=== PATIENT | female | born 1980 | race Caucasian/White ===

== ENCOUNTER 2016-12-07 11:24 | Emergency (ER) | payer OTHER ==
[~2016-12-07] VITALS: Ht 172.7 cm; Wt 99.8 kg
[~2016-12-07 11:24] MED LIST: LEVO1TAB10 PO
[2016-12-07 11:35] VITALS: BP 154/96; PULSE 95; RESP 17; TEMP 98; O2SAT 95
[2016-12-07] MEDS ORDERED: IBUPROFEN 800 MG TABLET PO ONE (12:00)
[2016-12-07] MEDS ORDERED: HYDROcodone/ACETAMIN 5-325 MG TAB (NORCO/ VICODIN) PO ONE (13:15)
[2016-12-07] MEDS ORDERED: ONDANSETRON 4 MG ODT TAB PO ONE (13:15)
[2016-12-07 13:50] VITALS: BP 128/74; PULSE 77; RESP 15; TEMP 98.4; O2SAT 99
== END 2016-12-07 13:50 | disposition home or self-care (01) ==
LOC: SED 11:24
DX: S16.1XXA Strain of muscle, fascia and tendon at neck level, initial encounter (principal); R51 Headache; I10 Essential (primary) hypertension; V49.9XXA Car occupant (driver) (passenger) injured in unspecified traffic accident, initial encounter; Y93.89 Activity, other specified; Y99.8 Other external cause status; Y92.89 Other specified places as the place of occurrence of the external cause
CPT/HCPCS: 70450; 72125; 81025; 99284; Q0162

== ENCOUNTER 2019-05-19 19:26 | Inpatient (IN) | payer OTHER ==
[~2019-05-19] VITALS: Ht 172.7 cm; Wt 88.9 kg
[~2019-05-19 19:26] MED LIST changes: +CEPH-568 PO; +IBUP-1969 PO; +IBUP-1970 PO; +NOR10 PO; +OXYC-130 PO
[2019-05-19] MEDS ORDERED: NACL 0.9% 1,000 ML IV ONE (19:44)
[2019-05-19 19:49] VITALS: BP_SYST 146
--- NOTE | 2019-05-19 19:52 | NUR ---
Patient to ER bed 07 to gown for evaluation. Side rails up.
--- NOTE | 2019-05-19 20:00 | NUR ---
Pt C/O fever, abdominal pain, nausea, and generalized weakness x 2 days. Pt states she took Tylenol prior to arrival and is afebrile in the ED. Has hx of ulcers. Denies any chest pain, shortness of breath or any other symptoms at this time. Will continue to monitor.
[2019-05-19 20:07] LABS: BILIRUBIN,URINE NEGATIVE (NEGATIVE); BLOOD, URINE NEGATIVE (NEGATIVE); CLARITY/URINE CLEAR (CLEAR); COLOR,URINE YELLOW (YELLOW); GLUCOSE,URINE NEGATIVE (NEGATIVE); KETONES,URINE TRACE (NEGATIVE); LEUKOCYTE ESTERASE ,URINE NEGATIVE (NEGATIVE); NITRITE, URINE NEGATIVE (NEGATIVE); PH,URINE 7.5 (5.0-8.0); PROTEIN URINE TRACE (NEGATIVE); UROBILINOGEN,URINE 0.2 (0.2-1.0)
--- NOTE | 2019-05-19 20:08 | NUR ---
ER Dr. Ambrosio at bedside examining patient.
[2019-05-19 20:15] LABS: BACTERIA,URINE FEW /HPF (None Seen); RBC,URINE 0-3 /HPF (0-3); WBC,URINE 0-3 /HPF (0-3)
[2019-05-19] MEDS ORDERED: MORPHINE 4 MG/ML INJ. SYRINGE IVP ONE ×2 (20:15→21:45)
[2019-05-19] MEDS ORDERED: NACL 0.9% 2,000 ML IV ONE (20:15)
[2019-05-19] MEDS ORDERED: ONDANSETRON HCL 4 MG/2 ML VIAL IVP ONE (20:15)
[2019-05-19 20:32] LABS: BASOPHILS # (AUTO) 0.1 K/uL (0.0-0.2); BASOPHILS % (AUTO) 0.3 % (0.0-2.0); EOSINOPHILS # (AUTO) 0.3 K/uL (0.0-0.4); HEMATOCRIT 37.1 % (36-48); HEMOGLOBIN 12.6 g/dL (12.0-16.0); LYMPHOCYTES # (AUTO) 0.8 K/uL (1.0-5.5); LYMPHOCYTES % (AUTO) 4.8 % (20.5-51.5); MEAN CORPUSCULAR HEMOGLOBIN 31 pg (27-31); MEAN CORPUSCULAR HGB CONC 34 % (32-36); MEAN CORPUSCULAR VOLUME 91 fL (79.0-98.0); MONOCYTES # (AUTO) 0.8 K/uL (0.0-1.0); MONOCYTES % (AUTO) 4.9 % (1.7-9.3); PLATELET COUNT (AUTO) 430 K/uL (130-430); RED CELL DISTRIBUTION WIDTH 12.9 % (9.0-15.0)
[2019-05-19] MEDS ORDERED: cefTRIAXone 1 GM IVPB PREMIX 50 ML IV ONE (21:00)
--- NOTE | 2019-05-19 21:02 | NUR ---
Patient transported to radiology via wheelchair, accompanied by rad staff.
--- NOTE | 2019-05-19 21:07 | NUR ---
Pt returned in stable condition.
[2019-05-19 21:11] LABS: PROTHROMBIN TIME 10.2 SECS (9.5-12.5)
[2019-05-19 21:12] LABS: CALCIUM 9.7 mg/dL (8.4-11.0); CREATININE 0.85 mg/dL (0.55-1.30); POTASSIUM 3.6 mmol/L (3.5-5.1)
[2019-05-19 21:16] LABS: ALBUMIN 3.4 g/dL (3.4-4.8); TOTAL BILIRUBIN 0.5 mg/dL (0.0-1.0)
[2019-05-19] MEDS ORDERED: ESTR1.25 PO (21:44)
[2019-05-19] MEDS ORDERED: ESOM5SUS PO (21:44)
--- NOTE | 2019-05-19 21:44 | NUR ---
Medication reconciliation completed with information provided by patient.
--- NOTE | 2019-05-19 22:58 | NUR ---
Patient will be admitted to care of Dr. Rossi. Admitted to med surg unit. Will go to room 135. Belongings list completed. Summary report printed. Report will be given at bedside.
[2019-05-19] MEDS ORDERED: MORPHINE 2 MG/ML INJ. SYRINGE IVP SCH (23:15)
--- NOTE | 2019-05-19 23:30 | NUR ---
ADMISSION NOTE Received patient from ER via gamal, received report from CLAUDIA PEREZ. Patient admitted with diagnosis of PNA. Patient oriented to hospital routine, call light, toileting and safety-patient verbalized understanding.
[2019-05-19 23:34] VITALS: BP_SYST 160
[2019-05-19] MEDS ORDERED: MORPHINE 2 MG/ML INJ. SYRINGE IVP PRN (23:45)
[2019-05-20] MEDS: NACL 0.9% 1,000 ML IV SCH ×2 (00:06→15:04)
--- NOTE | 2019-05-20 00:13 | NUR ---
PAIN/MORPHINE PT REPORTING SEVERE PAIN. PT GIVEN MORPHINE 2 MG IVP. MEDICATION ACTIONS AND POTENTIAL SIDE EFFECTS EXPLAINED, PT VERBALIZED UNDERSTANDING. SAFETY MAINTAINED. WILL MONITOR.
--- NOTE | 2019-05-20 00:19 | NUR ---
Pagelili Azevedo s/w Leonardo
[2019-05-20] MEDS ORDERED: LEVOFLOXACIN 500 MG/D5W 100 ML IV ONE (00:22)
--- NOTE | 2019-05-20 00:30 | NUR ---
SPOKE TO DR. MANLEY REGARDING PT'S REPORT OF PERSISTENT ABDOMINAL PAIN DESPITE MORPHINE ADMINISTRATION. DR. MANLEY ORDERED DILAUDID 2 MG Q 4 HR FOR SEVERE PAIN. DR. MANLEY ALSO ORDERED STAT CT OF ABDOMEN/PELVIS WITH CONTRAST. WILL CARRY OUT.
[2019-05-20] MEDS: LEVOFLOXACIN 500 MG/D5W 100 ML IV SCH (00:56)
[2019-05-20] MEDS ORDERED: DIATR MEGLU/DIATRIZ SOD 30 ML SOLUTION PO ONE (01:22)
[2019-05-20 01:43] VITALS: BP_SYST 154
--- NOTE | 2019-05-20 01:49 | NUR ---
IV RE-INSERTION: Complaining of pain to IV site. Restarted on LEFT AC. Successful after MULTIPLE attempts. Resumed current IVF of NS and regulated @ 75 per hour. Will observe for any signs of infiltration.
--- NOTE | 2019-05-20 03:10 | NUR ---
RADIOLOGY PT OFF THE FLOOR VIA WHEELCHAIR WITH RADIOLOGY FOR CT OF ABDOMEN/PELVIS WITH CONTRAST.
[2019-05-20] MEDS ORDERED: IOHEXOL 100 ML IV ONE (03:26)
--- NOTE | 2019-05-20 03:28 | NUR ---
RETURN TO UNIT FROM RADIOLOGY FOR CT SCAN. VSS.
[2019-05-20] MEDS: HYDROmorphone 2 MG/ML VIAL IVP PRN ×4 (03:32→19:41)
--- NOTE | 2019-05-20 03:32 | NUR ---
PAIN/DILAUDID PT REPORTING SEVERE ABDOMINAL PAIN. DILAUDID 2 MG IVP ADMINISTERED. MEDICATION ACTION AND POTENTIAL SIDE EFFECTS EXPLAINED. PT VERBALIZED UNDERSTANDING. SAFETY PRECAUTIONS OBSERVED. WILL MONITOR.
--- NOTE | 2019-05-20 06:25 | NUR ---
CLOSING NOTE PT RESTING IN BED, NO S/S OF ACUTE DISTRESS, BREATHING IS EVEN AND UNLABORED TO ROOM AIR. PT APPEARS TO BE COMFORTABLE AT THIS TIME. IVF INFUSING AT ORDERED RATE. ALL NEEDS MET DURING SHIFT. WILL CONTINUE TO MONITOR UNTIL PT CARE IS ENDORSED TO DAY SHIFT RN.
--- NOTE | 2019-05-20 08:00 | NUR ---
initial notes rec patient awake alert with hob levated. ivf infusing well on the l ac. no infiltration noted. bed to the lowest position and side rails up and locked. seen by dr melara at bedside. no sob noted. call light within reached.
--- NOTE | 2019-05-20 08:35 | NUR ---
GI consult called: for Dr. Estrada (Dr. Chris cone trucker), regarding abdominal pain, ordered by Dr. Azevedo, spoke with Sahra.
[2019-05-20 09:00] LABS: BASOPHILS % (AUTO) 0.4 % (0.0-2.0); EOSINOPHILS # (AUTO) 0.1 K/uL (0.0-0.4); EOSINOPHILS % (AUTO) 0.5 % (0.0-4.0); HEMATOCRIT 35.2 % (36-48); HEMOGLOBIN 11.6 g/dL (12.0-16.0); LYMPHOCYTES # (AUTO) 0.8 K/uL (1.0-5.5); MEAN CORPUSCULAR HEMOGLOBIN 30 pg (27-31); MEAN CORPUSCULAR HGB CONC 33 % (32-36); MEAN CORPUSCULAR VOLUME 91 fL (79.0-98.0); MONOCYTES # (AUTO) 0.7 K/uL (0.0-1.0); MONOCYTES % (AUTO) 5.8 % (1.7-9.3); NEUTROPHILS % (AUTO) 87.3 % (40.0-70.0); PLATELET COUNT (AUTO) 406 K/uL (130-430); RED BLOOD CELL COUNT(AUTO) 3.87 MIL/uL (4.2-6.2); RED CELL DISTRIBUTION WIDTH 13.2 % (9.0-15.0); WHITE BLOOD COUNT (AUTO) 12.6 K/uL (4.8-10.8)
[2019-05-20 09:14] LABS: CALCIUM 9.1 mg/dL (8.4-11.0); CREATININE 0.83 mg/dL (0.55-1.30); POTASSIUM 4.1 mmol/L (3.5-5.1)
[2019-05-20 09:25] LABS: ALBUMIN 2.7 g/dL (3.4-4.8); TOTAL BILIRUBIN 0.3 mg/dL (0.0-1.0)
[2019-05-20] MEDS ORDERED: amLODIPine BESYLATE 10 MG TABLET PO ONE (11:45)
[2019-05-20] MEDS ORDERED: ESTROGENS,CONJUGATED 0.625 MG TABLET PO SCH (11:45)
[2019-05-20] MEDS: ONDANSETRON HCL 4 MG/2 ML VIAL IVP PRN ×2 (13:18→19:42)
[2019-05-20] MEDS ORDERED: ESTRADIOL 1 MG PO ONE (13:45)
[2019-05-20 14:32] VITALS: BP_SYST 142
[2019-05-20] MEDS: PANTOPRAZOLE SODIUM 40 MG TAB PO SCH ×2 (14:58→20:17)
[2019-05-20] MEDS: ESTRADIOL 1 MG PO SCH (15:00)
[2019-05-20] MEDS: ACETAMINOPHEN 325 MG TABLET PO PRN (15:02)
--- NOTE | 2019-05-20 16:00 | NUR ---
rounds seen y dr lomas and with orders.
[2019-05-20 16:56] VITALS: BP_SYST 121
--- NOTE | 2019-05-20 18:50 | NUR ---
closing notes sleeps at intervals. no sob noted. bed to the lowest position and side rails up and locked. call light within reached.
--- NOTE | 2019-05-20 19:30 | NUR ---
OPENING NOTE RECEIVED CARE OF PT. PT REPORTING SEVERE PAIN AND NAUSEA. PT IS AAOX4, WITH AND SON AT BEDSIDE. BREATHING IS UNLABORED TO O2 VIA NC AT 2L, O2 SATURATION IS AT 97%. IVF ARE INFUSING WITH NO SIGN OF INFILTRATION AT IV SITE. SAFETY PRECAUTIONS ARE IN PLACE. BED IS LOCKED IN LOWEST POSITION. CALL LIGHT IS WITH PT. SIDE RAILS UP X2. WILL MONITOR.
--- NOTE | 2019-05-20 19:42 | NUR ---
DILAUDID/ZOFRAN PT GIVEN DILAUDID 2 MG IVP FOR PAIN AND ZOFRAN 4 MG IVP FOR NAUSEA. MEDICATIONS AND POTENTIAL SIDE EFFECTS EXPLAINED TO PT. PT VERBALIZED UNDERSTANDING. SAFETY PRECAUTIONS IN PLACE. WILL MONITOR.
[2019-05-20 20:00] VITALS: BP_SYST 124
--- NOTE | 2019-05-20 20:43 | NUR ---
SPOKE TO DR. DAYANNA AALN ORDERED STAT ABG FOR PT ON ROOM AIR. DR. ALAN ALSO DISCONTINUED DILAUDID FOR PAIN. MD INFORMED THAT PT REPORTS SEVERE ABDOMINAL PAIN. MD STATED THAT THE PAIN MEDICATION IS LIKELY CAUSING THE PT TO BREATH IRREGULARLY.
[2019-05-20] MEDS ORDERED: IPRATROPIUM BROM 0.5 MG/2.5 ML VIAL.NEB (ATROVENT) INH PRN (20:45)
[2019-05-20] MEDS ORDERED: ALBUTEROL SULFATE 0.083% 2.5 MG/3 ML VIAL.NEB INH PRN (20:45)
--- NOTE | 2019-05-20 20:58 | NUR ---
ABG DRAWN RESPIRATORY AT BEDSIDE TO DRAW STAT ABG.
[2019-05-20] MEDS ORDERED: ACETAMINOPHEN 325 MG TABLET PO PRN (21:00)
[2019-05-20] MEDS ORDERED: ALBUTEROL SULFATE 0.083% 2.5 MG/3 ML VIAL.NEB INH ONE (21:09)
[2019-05-20] MEDS ORDERED: IPRATROPIUM BROM 0.5 MG/2.5 ML VIAL.NEB (ATROVENT) INH ONE (21:09)
[2019-05-20] MEDS: IPRATROPIUM BROM 0.5 MG/2.5 ML VIAL.NEB (ATROVENT) INH SCH (21:17)
[2019-05-20] MEDS: ALBUTEROL SULFATE 0.083% 2.5 MG/3 ML VIAL.NEB INH SCH (21:17)
--- NOTE | 2019-05-20 21:22 | NUR ---
PAGED I PAGED DR. ALAN @ 2121 I SPOKE WITH [employer] OFFICER DR. ALAN CALLED BACK @ 2142
[2019-05-20 21:42] VITALS: BP_SYST 121
--- NOTE | 2019-05-20 21:45 | NUR ---
SPOKE TO DR. ALAN REGARDING RESULTS OF PT'S ABG. STATED THAT THE PT WILL BE CONTINUED ON BREATHING TREATMENTS. ALSO INFORMED THAT PT WAS REQUESTING SOMETHING STRONGER FOR PAIN MANAGEMENT. DR. ALAN ORDERED TORADOL 30 MG IVP Q6 HOURS PRN FOR MODERATE PAIN. WILL CARRY OUT.
[2019-05-21 00:20] VITALS: BP_SYST 142
[2019-05-21] MEDS: LEVOFLOXACIN 500 MG/D5W 100 ML IV SCH (00:30)
--- NOTE | 2019-05-21 00:30 | NUR ---
EGD CONSENT SIGNED FOR PROCEDURE TOMORROW
[2019-05-21] MEDS: ONDANSETRON HCL 4 MG/2 ML VIAL IVP PRN ×4 (02:04→23:39)
[2019-05-21] MEDS: KETOROLAC TROMETHAMINE 30 MG VIAL IVP PRN ×3 (02:05→15:10)
--- NOTE | 2019-05-21 02:05 | NUR ---
ZOFRAN/TORADOL ZOFRAN 4 MG IVP ADMINISTERED FOR NAUSEA AND TORADOL 30 MG IVP ADMINISTERED FOR PAIN BY CHRIS YUAN. PT IS REPORTING FEELING FEVERISH. PER CHRIS YUAN, PT'S TEMPERATURE WAS 99.0 DEGREES FAHRENHEIT ON THE ORAL THERMOMETER. FAN IS IN PLACE FOR COOLING MEASURES. WILL MONITOR.
[2019-05-21] MEDS: NACL 0.9% 1,000 ML IV SCH ×2 (04:10→18:53)
--- NOTE | 2019-05-21 04:45 | NUR ---
RN ROUNDS: PT SITTING UP IN CHAIR, AAOX4, NO S/S OF ACUTE DISTRESS. PT REPORTS ABDOMINAL PAIN IS IMPROVING SLIGHTLY. PT ENCOURAGED TO CALL FOR ASSISTANCE. SAFETY MAINTAINED. WILL MONITOR.
[2019-05-21 06:09] LABS: INR 1.1 (0.8-1.2); PROTHROMBIN TIME 10.8 SECS (9.5-12.5)
--- NOTE | 2019-05-21 06:49 | NUR ---
CLOSING NOTE PT RESTING IN BED, NO S/S OF ACUTE DISTRESS, BREATHING IS EVEN AND UNLABORED TO O2 AT 2L VIA NC. IVF INFUSING AT ORDERED RATE, NO SIGN OF INFILTRATION AT IV SITE. NPO STATUS HAS BEEN MAINTAINED. PT EDUCATED REGARDING EGD PROCEDURE TODAY. ALL NEEDS MET DURING SHIFT. SAFETY MAINTAINED. WILL CONTINUE TO MONITOR UNTIL PT CARE IS ENDORSED TO DAY SHIFT RN.
[2019-05-21] MEDS: ALBUTEROL SULFATE 0.083% 2.5 MG/3 ML VIAL.NEB INH SCH ×5 (07:11→23:41)
[2019-05-21] MEDS: IPRATROPIUM BROM 0.5 MG/2.5 ML VIAL.NEB (ATROVENT) INH SCH ×5 (07:11→23:41)
[2019-05-21 08:00] VITALS: BP_SYST 129
--- NOTE | 2019-05-21 08:00 | NUR ---
initial notes rec patient awake alert with ivf infusing well on the l ac. no infiltration noted. up sitting at bedside with the . resp easy and unlabored. bed to the lowest position and side rails up and locked. call light within reached.
[2019-05-21] MEDS ORDERED: MIDAZOLAM HCL 5 MG/5 ML VIAL ONE (11:13)
--- NOTE | 2019-05-21 11:18 | NUR ---
CONSULTATION PAGED/CALLED Reason for Consultation: [] POSS PNA Person Who was Notified: [] JOSE Consulting Physician: [] DR Kelsie HOLLOWAY Trimmer Machine Specialty: [] PULMONOLOGY Ordering Physician: [] DR ALAN
--- NOTE | 2019-05-21 12:51 | NUR ---
rounds was taken to gi lab via wheelchair.
[2019-05-21] MEDS: fentaNYL CITRATE/PF 100 MCG/2 ML AMP ONE ×3 (13:49→13:54)
[2019-05-21] MEDS: MIDAZOLAM HCL 5 MG/5 ML VIAL ONE ×4 (13:49→13:59)
[2019-05-21 14:12] VITALS: BP_SYST 126
--- NOTE | 2019-05-21 14:30 | NUR ---
rounds back fro gi lab via wheelchair. no osb noted. made comfortable in bed.
[2019-05-21] MEDS: PANTOPRAZOLE SODIUM 40 MG TAB PO SCH ×2 (15:03→22:18)
[2019-05-21] MEDS: ESTRADIOL 1 MG PO SCH (15:03)
[2019-05-21] MEDS: amLODIPine BESYLATE 10 MG TABLET PO SCH (15:04)
--- NOTE | 2019-05-21 15:28 | NUR ---
Dietitian Recommendations * Consider advance diet if/when medically appropriate LP, RD Please refer to Nutrition Assessment for details. Addendum: 05/21/19 at [address] Amended: Links added.
[2019-05-21 17:10] VITALS: BP_SYST 109
--- NOTE | 2019-05-21 18:30 | NUR ---
closing notes at bedside. call light within reached. denies pain. resitng comfortably.
[2019-05-21] MEDS: PIPERACILLIN/TAZO 3.375/DEX-IS 50 ML IV SCH ×2 (18:52→23:39)
--- NOTE | 2019-05-21 19:15 | NUR ---
initial notes: pt is on bedside chair. alert, awake, oriented x 4. no complain of pain. no sob,not distress. stable. ivf infusing to left AC gauge 22- intact and patent, no sing of infiltration. explained to pt plan of care for tonight, instructed how to use call light, call for assistance, explained safety. pt verbalized and demonstrate understanding. needs attended, call light in reach. low bed position and lock, bed alarm on. will follow-up.
[2019-05-21 19:38] VITALS: BP_SYST 127
[2019-05-21] MEDS: ACETAMINOPHEN 325 MG TABLET PO PRN (19:47)
--- NOTE | 2019-05-21 22:00 | NUR ---
notes: pt is on bed, watching tv. not distress. stable. ivf infusing well. no complain of pain. needs attended. call light in reach. low bed position. will follow-up.
--- NOTE | 2019-05-22 | NUR ---
sleeping on her side, comfortable. no difficulty of breathing, stable. iv antibiotic given. iv tubing change. needs attended. call light in reach. will follow-up.
[2019-05-22] MEDS: LEVOFLOXACIN 500 MG/D5W 100 ML IV SCH ×2 (00:47→23:16)
--- NOTE | 2019-05-22 02:00 | NUR ---
sleeping. comfortable. no sob. no pain. call light in reach. will follow-up.
[2019-05-22 03:27] VITALS: BP_SYST 117
--- NOTE | 2019-05-22 04:07 | NUR ---
notes: sleeping on her side, comfortable. no difficulty of breathing, stable. needs attended. call light in reach. will follow-up.
[2019-05-22] MEDS: ONDANSETRON HCL 4 MG/2 ML VIAL IVP PRN ×3 (05:07→23:14)
[2019-05-22] MEDS: ACETAMINOPHEN 325 MG TABLET PO PRN ×2 (05:09→14:22)
--- NOTE | 2019-05-22 05:15 | NUR ---
pt wakes up and complain she feels hot and nauseated. oral temp- 100.5, pt request for tylenol and zofran, stable. not distress. needs attended.call light in reach. will follow-up.
[2019-05-22] MEDS: PIPERACILLIN/TAZO 3.375/DEX-IS 50 ML IV SCH ×3 (05:58→17:59)
[2019-05-22] MEDS: NACL 0.9% 1,000 ML IV SCH ×2 (05:59→20:20)
--- NOTE | 2019-05-22 06:00 | NUR ---
notes: pt is sleeping, wakes up. temp.99.5, pt stated oits much better. am iv antibiotic given. stable. needs attended. call light in reach. will follow-up.
[2019-05-22 06:01] LABS: BASOPHILS % (AUTO) 0.2 % (0.0-2.0); EOSINOPHILS # (AUTO) 0.4 K/uL (0.0-0.4); EOSINOPHILS % (AUTO) 4.3 % (0.0-4.0); HEMOGLOBIN 10.8 g/dL (12.0-16.0); LYMPHOCYTES # (AUTO) 0.7 K/uL (1.0-5.5); LYMPHOCYTES % (AUTO) 6.7 % (20.5-51.5); MEAN CORPUSCULAR HEMOGLOBIN 31 pg (27-31); MEAN CORPUSCULAR HGB CONC 34 % (32-36); MEAN CORPUSCULAR VOLUME 91 fL (79.0-98.0); MONOCYTES # (AUTO) 0.7 K/uL (0.0-1.0); MONOCYTES % (AUTO) 6.4 % (1.7-9.3); NEUTROPHILS # (AUTO) 8.6 K/uL (1.8-7.7); NEUTROPHILS % (AUTO) 82.4 % (40.0-70.0); PLATELET COUNT (AUTO) 361 K/uL (130-430); RED CELL DISTRIBUTION WIDTH 13.6 % (9.0-15.0); WHITE BLOOD COUNT (AUTO) 10.4 K/uL (4.8-10.8)
[2019-05-22 06:24] LABS: ALBUMIN 2.3 g/dL (3.4-4.8); CALCIUM 9.1 mg/dL (8.4-11.0); CREATININE 0.74 mg/dL (0.55-1.30); POTASSIUM 3.6 mmol/L (3.5-5.1); TOTAL BILIRUBIN 0.4 mg/dL (0.0-1.0)
--- NOTE | 2019-05-22 07:04 | NUR ---
closing: sleeping, comfortable.no sob, not distress and no pain. ivf infusing well. needs attended the whole shift, call light in reach. will give bedside report to am rn.
[2019-05-22] MEDS: ALBUTEROL SULFATE 0.083% 2.5 MG/3 ML VIAL.NEB INH SCH ×5 (07:12→23:00)
[2019-05-22] MEDS: IPRATROPIUM BROM 0.5 MG/2.5 ML VIAL.NEB (ATROVENT) INH SCH ×5 (07:12→23:00)
--- NOTE | 2019-05-22 07:22 | NUR ---
OPENING NOTE Patient resting in the bed. No acute distress. Respiration even and unlabored. On O2 2L/min via NC. AAO x 4. Denied of pain at this time. Skin warm and dry to touch. IV intact to LAC, no redness, no swelling, no drainage. On NS at 75ml/hr, infusing well. Discussed the safety issue, adam call light when needs help, and plan of care, verbally understanding. Safety measure maintained. Bed locked in low position, side rails up. Refused bed alarm, risk and benefit explained, verbally understanding. Call light within reached. Will continue to monitor.
[2019-05-22 07:45] VITALS: BP_SYST 123
[2019-05-22] MEDS: PANTOPRAZOLE SODIUM 40 MG TAB PO SCH ×2 (09:16→20:25)
[2019-05-22] MEDS: amLODIPine BESYLATE 10 MG TABLET PO SCH (09:18)
--- NOTE | 2019-05-22 09:25 | NUR ---
AMBULATORY IN THE [address] WITH FAMILY IN STEADY GAIT.
--- NOTE | 2019-05-22 09:55 | NUR ---
SEEN AND EXAMINED BY PRINCESS SABA.
--- NOTE | 2019-05-22 10:30 | NUR ---
PATIENT DID HER PERSONAL HYGIENE SELF, SUPPLY PROVIDED.
--- NOTE | 2019-05-22 12:35 | NUR ---
ZOSYN HANG Patient resting in the bed. No acute distress. Respiration even and unlabored. Continue on O2 2L/min via NC. Denied of pain at this time. IV intact, IVF infusing well. Zosyn hang at this time. Family at bedside. Safety measure maintained. Call light within reached. Bed locked in low position, side rails up. Continue to monitor.
[2019-05-22 12:40] VITALS: BP_SYST 106
--- NOTE | 2019-05-22 13:00 | NUR ---
SEEN AND EXAMINED BY CRISTINO TUTTLE.
[2019-05-22] MEDS: KETOROLAC TROMETHAMINE 30 MG VIAL IVP PRN (14:22)
--- NOTE | 2019-05-22 14:30 | NUR ---
Medication patient complaining of generalized pain and nausea, patient states," I feel like I have a fever," oral temperature taken 100.0F at this time, educated patient on PRN medications uses and potential side effects, she verbalized understanding and tolerated well, IV line is patent and infusing well, will endorse to Daly RN, patient call light is within reach, fall and aspiration precautions in place.
--- NOTE | 2019-05-22 15:22 | NUR ---
RECHECKED TEMP=98.8 Patient resting in the bed. No acute distress. Continue on O2 2L/min via NC. IV intact, IVF infusing well. Safety measure maintained. Call light within reached. Bed locked in low position, side rail up. Continue to monitor.
[2019-05-22 16:40] VITALS: BP_SYST 118
--- NOTE | 2019-05-22 18:33 | NUR ---
CLOSING NOTE Patient sitting in the chair at bedside. No acute distress. Respiration even and unlabored. On O2 2L/min via NC. No c/o pain at this time. Skin warm and dry to touch. IV intact to LAC, no redness, no swelling, no drainage. On NS at 75ml/hr, infusing well. All needs met and attended. Safety measure maintained. Bed locked in low position, side rails up. Refused bed alarm, risk and benefit explained, verbally understanding. Call light within reached. Will endorse to night nurse.
--- NOTE | 2019-05-22 19:25 | NUR ---
initial notes: pt is on bed. alert, awake, oriented x 4. no complain of pain. no sob,not distress. on room air sating 95%. stable vital sign. afebrile. ivf infusing to left AC gauge 22- intact and patent, no redness and no infiltration.pt stated she feel more better now. explained to pt plan of care for tonight, instructed to use call light, call for assistance, safety. pt verbalized and demonstrate understanding. needs attended, call light in reach. low bed position and lock, bed alarm on. will follow-up.
[2019-05-22 20:10] VITALS: BP_SYST 141
[2019-05-22] MEDS: ESTRADIOL 1 MG PO SCH (20:15)
--- NOTE | 2019-05-22 22:00 | NUR ---
on bed watching on her cellphone. not distress. breathing ok. stable. needs attended. call light in reach. will follow-up.
--- NOTE | 2019-05-23 | NUR ---
pt is getting ready to sleep. comfortable. no difficulty of breathing, no pain. stable. iv antibiotic given. needs attended. call light in reach. will follow-up.
[2019-05-23] MEDS: PIPERACILLIN/TAZO 3.375/DEX-IS 50 ML IV SCH ×2 (00:07→05:59)
[2019-05-23 01:57] VITALS: BP_SYST 138
--- NOTE | 2019-05-23 02:00 | NUR ---
sleeping on her side, comfortable.not distress. no difficulty of breathing, stable. needs attended. call light in reach. will follow-up.
--- NOTE | 2019-05-23 04:12 | NUR ---
notes: sleeping on her side, comfortable. no difficulty of breathing, stable. needs attended. call light in reach. will follow-up.
--- NOTE | 2019-05-23 06:00 | NUR ---
notes: sleeping, no sob, no distress. no pain. ivf infusing well. iv antibiotic given. needs attended. call light in reach. will follow-up.
--- NOTE | 2019-05-23 07:15 | NUR ---
closing: pt is sitting in bed. not sob, not distress. stable. no pain. ivf infusing well. needs attended the whole shift. call light in reach. sbar report given to am rn.
--- NOTE | 2019-05-23 07:30 | NUR ---
OPENING NOTE: RECEIVED REPORT FROM NIGHT NURSE. PATIENT IS RESTING COMFORTABLY IN BED. NO S/S OF DISTRESS OR SOB. PATIENT ON ROOM AIR. NO COMPLAINTS OF PAIN. PATIENT IS ALERT AND ORIENTED. PATIENT IS WANTING TO GO HOME TODAY. CALL LIGHT IN REACH, BED IN LOWEST POSITION, AND WILL CONTINUE TO MONITOR.
[2019-05-23] MEDS: NACL 0.9% 1,000 ML IV SCH (07:45)
[2019-05-23 08:12] VITALS: BP_SYST 158
[2019-05-23] MEDS: PANTOPRAZOLE SODIUM 40 MG TAB PO SCH (08:16)
[2019-05-23] MEDS: amLODIPine BESYLATE 10 MG TABLET PO SCH (08:16)
[2019-05-23] MEDS ORDERED: LEVO750T45 PO (10:15)
[2019-05-23] MEDS ORDERED: FLA250 PO (10:16)
[2019-05-23] MEDS ORDERED: ALBMDI INH (10:16)
[2019-05-23 10:27] VITALS: BP_SYST 158
[2019-05-23] MEDS: ALBUTEROL SULFATE 0.083% 2.5 MG/3 ML VIAL.NEB INH SCH ×2 (10:34→10:35)
[2019-05-23] MEDS: IPRATROPIUM BROM 0.5 MG/2.5 ML VIAL.NEB (ATROVENT) INH SCH ×2 (10:34→10:35)
--- NOTE | 2019-05-23 10:57 | NUR ---
D/C Patient Patient given medication reconciliation form and D/C instructions. Exit Care provided. Patient verbalized understanding. MD discussed with patient the results and treatment provided. Ambulatory with steady gait for discharge to home. Patient in stable condition, ID band removed. IV catheter removed, intact and dressing applied, no active bleeding. Rx of Levaquin, Flagyl, and Albuterol given. Patient educated on pain management. All belongings sent with patient.
== END 2019-05-23 10:57 | disposition home or self-care (01) | DRG 388 ==
LOC: SED 19:26 → SMU 19:52
PROVIDERS: ADMIT Internal Medicine Hospice and Palliative Medicine; ATTEND Internal Medicine Hospice and Palliative Medicine
PROC: 0DB68ZX Excision of Stomach, Via Natural or Artificial Opening Endoscopic, Diagnostic (ICD-10-PCS; principal; 2019-05-21 13:00)
DX: K56.7 Ileus, unspecified (principal); J18.9 Pneumonia, unspecified organism; J96.00 Acute respiratory failure, unspecified whether with hypoxia or hypercapnia; N80.9 Endometriosis, unspecified; I10 Essential (primary) hypertension; M79.7 Fibromyalgia; E86.0 Dehydration; G89.29 Other chronic pain; E66.9 Obesity, unspecified; Z90.49 Acquired absence of other specified parts of digestive tract; Z98.891 History of uterine scar from previous surgery; Z90.710 Acquired absence of both cervix and uterus; Z79.899 Other long term (current) drug therapy; Z90.722 Acquired absence of ovaries, bilateral; Z68.29 Body mass index [BMI] 29.0-29.9, adult
CPT/HCPCS: 36415; 36600; 43239; 71045; 71250-TC; 76700-TC; 80053; 81000-TC; 82150-TC; 82803-TC; 83605; 83690-TC; 84703; 85025; 85610-TC; 85730-TC; 86710; 87040-TC; 87081; 87186-TC; 88305; 88312; 88313; 94640; 94760; 96361; 96365; 96375; 99285; J0696; J1170; J1885; J1956; J2250; J2270; J2405; J2543; J3010; J7030; J7613; Q9964; Q9967

== ENCOUNTER 2021-06-18 17:39 | Emergency (ER) | payer OTHER ==
[~2021-06-18] VITALS: Ht 172.7 cm; Wt 90.7 kg
[~2021-06-18 17:39] MED LIST changes: +ALBMDI INH; -CEPH-568 PO; +ESOM5SUS PO; +ESTR1.25 PO; +FLA250 PO; -IBUP-1969 PO; -IBUP-1970 PO; -LEVO1TAB10 PO; +LEVO750T45 PO; -OXYC-130 PO
[2021-06-18 17:41] VITALS: BP_SYST 142
[2021-06-18 18:21] LABS: ANION GAP 6 (5-15); BASOPHILS % (AUTO) 0.4 % (0.0-2.0); CALCIUM 9.6 mg/dL (8.4-11.0); CHLORIDE 106 mmol/L (98-107); CREATININE 0.82 mg/dL (0.55-1.30); EOSINOPHILS # (AUTO) 0.1 K/uL (0.0-0.4); EOSINOPHILS % (AUTO) 1.2 % (0.0-4.0); GLUCOSE 93 mg/dL (70-99); HEMATOCRIT 39.4 % (36-48); HEMOGLOBIN 13.4 g/dL (12.0-16.0); LYMPHOCYTES # (AUTO) 2.9 K/uL (1.0-5.5); LYMPHOCYTES % (AUTO) 28.5 % (20.5-51.5); MEAN CORPUSCULAR HEMOGLOBIN 31 pg (27-31); MEAN CORPUSCULAR HGB CONC 34 % (32-36); MEAN CORPUSCULAR VOLUME 91 fL (79.0-98.0); MONOCYTES # (AUTO) 0.9 K/uL (0.0-1.0); MONOCYTES % (AUTO) 8.9 % (1.7-9.3); NEUTROPHILS # (AUTO) 6.3 K/uL (1.8-7.7); PLATELET COUNT (AUTO) 342 K/uL (130-430); POTASSIUM 4.3 mmol/L (3.5-5.1); RED BLOOD CELL COUNT(AUTO) 4.34 MIL/uL (4.2-6.2); RED CELL DISTRIBUTION WIDTH 12.9 % (9.0-15.0); SODIUM SERUM 143 mmol/L (136-145); UREA NITROGEN, BLOOD 15 mg/dL (8-21); WHITE BLOOD COUNT (AUTO) 10.3 K/uL (4.8-10.8)
[2021-06-18 18:22] LABS: PROTHROMBIN TIME 10.2 SECS (9.5-12.5)
[2021-06-18 18:40] LABS: ALANINE AMINOTRANSFERASE 33 U/L (12-78); ALBUMIN 4.2 g/dL (3.4-4.8); ASPARTATE AMINOTRANSFERASE 20 U/L (10-37); BILIRUBIN,DIRECT 0.1 mg/dL (0.0-0.3); LIPASE 201 U/L (73-393); TOTAL BILIRUBIN 0.3 mg/dL (0.0-1.0)
[2021-06-18 18:42] LABS: GFR AFRICAN AMERICAN 99 mL/min (>90); HCG,QUANTITATIVE 2 mIU/ML (0-6)
[2021-06-18 19:20] VITALS: BP_SYST 125
== END 2021-06-18 19:20 | disposition home or self-care (01) ==
LOC: SED 17:39
DX: R07.89 Other chest pain (principal); I10 Essential (primary) hypertension
CPT/HCPCS: 36415; 71045; 80048; 80076; 83690; 83880; 84484; 84702; 85025; 85610-TC; 93005; 99285